=== PATIENT | male | born 1950 | race Caucasian/White ===

== ENCOUNTER 2017-01-29 03:36 | Inpatient (IN) | payer OTHER ==
[~2017-01-29] VITALS: Ht 172.7 cm; Wt 96.6 kg
[~2017-01-29 03:36] MED LIST: ADVIL,NUPRIN,M200 MG PO; AMLODIPINE BESY10 MG PO; ASCORBIC ACID100 MG PO; ASPIRIN325 MG PO; AUGMENTIN875 MG PO; COLACE100 MG PO; DAILY VITE1 EAC1 PO; DULCOLAX10 MG PR; FLEET ENEMA-AD118 ML PR; FLOMAX0.4 MG PO; HYDROCHLOROTH12.5 M3 PO; LABETALOL HCL200 MG PO; LISINOPRIL2.5 MG PO; MIRALAX255 GM PO; MULTIVITAMIN1 EAC2 PO; NORVASC10 MG PO; PHILLIPS'400 MG/5 M PO; SENNA8.6 MG PO; TYLENOL REGULA325 MG PO; ZESTORETIC 10-1 EAC1 PO
[2017-01-29 05:05] LABS: CHLORIDE 100 mEq/L (99-109); SODIUM 136 mEq/L (136-147)
[2017-01-29 05:08] LABS: GLUCOSE 120 mg/dL (70-99)
[2017-01-29 05:09] LABS: ANION GAP 12 MEQ/L (2-14)
[2017-01-29 05:10] LABS: TOTAL BILIRUBIN 0.6 mg/dL (0.0-1.0)
[2017-01-29 05:11] LABS: ALKALINE PHOSPHATASE 84 IU/L (3-129); GFR ESTIMATE (CALCULATED) 50 mL/min/
[2017-01-29 05:13] LABS: UREA NITROGEN (BUN) 28 mg/dL (9-23)
[2017-01-29 05:15] LABS: LIPASE 21 U/L (1.0-51.0)
[2017-01-29 05:22] LABS: HEMATOCRIT 32.1 % (38.0-50.0); MCH 28.9 PG (29.0-34.0); MCHC 32.1 G/DL (30.0-36.0); MCV 89.9 FL (86-99); MEAN PLAT.VOLUME 10.1 uM^3 (9.0-12.4); PLATELET COUNT 308 K/uL (156-360); RBC DIS.WIDTH-CV 13.4 % (11.8-14.6); RBC DIS.WIDTH-SD 44.3 % (39-53); RED BLOOD COUNT 3.57 M/uL (4.00-5.50); WHITE BLOOD COUNT 13.1 K/uL (4.1-10.2)
[2017-01-29 05:33] LABS: PTT 30.6 (25-32)
[2017-01-29] MEDS ORDERED: ZESTRIL10 MG PO (12:16)
[2017-01-29] MEDS ORDERED: HYDROCHLOROTHIA25 MG PO (12:16)
[2017-01-29] MEDS ORDERED: LO-DOSE ASPIRIN81 M2 PO (12:17)
[2017-01-29 12:51] VITALS: BP 148/84
[2017-01-29 17:38] VITALS: BP 144/78
[2017-01-29 19:18] VITALS: BP 122/67
[2017-01-29 23:36] VITALS: BP 126/68
[2017-01-30] VITALS (7 sets, daily range): BP systolic 114–161; BP diastolic 62–83
[2017-01-30 07:04] LABS: BASOPHIL COUNT 0.1 K/uL (0-0.1); EOSINOPHIL (%) 3.8 % (0-5); EOSINOPHIL COUNT 0.4 K/uL (0-0.3); HEMATOCRIT 29.3 % (38.0-50.0); IMMATURE GRANULOCYTE (%) 0.6 % (0.0-0.7); IMMATURE GRANULOCYTE COUNT 0.1 K/uL; LYMPHOCYTE COUNT 2.2 K/uL (1.0-2.8); MCH 29.3 PG (29.0-34.0); MCHC 32.4 G/DL (30.0-36.0); MCV 90.4 FL (86-99); MEAN PLAT.VOLUME 10.1 uM^3 (9.0-12.4); MONOCYTE (%) 10.9 % (3-12); MONOCYTE COUNT 1.2 K/uL (0-0.8); NEUTROPHIL (%) 63.9 % (45-76); PLATELET COUNT 331 K/uL (156-360); RBC DIS.WIDTH-CV 13.3 % (11.8-14.6); RBC DIS.WIDTH-SD 44.7 % (39-53); RED BLOOD COUNT 3.24 M/uL (4.00-5.50)
[2017-01-30 07:38] LABS: ANION GAP 11 MEQ/L (2-14); CHLORIDE 102 MEQ/L (99-109); GFR ESTIMATE (CALCULATED) 54 mL/min/; GLUCOSE 111 mg/dL (70-99); POTASSIUM 4.4 MEQ/L (3.7-5.4); SAMPLE HEMOLYSIS CHECK 0; SAMPLE ICTERIC CHECK 0; SAMPLE LIPEMIA CHECK 0; SODIUM 140 MEQ/L (136-147); UREA NITROGEN (BUN) 27 mg/dL (9-23)
[2017-01-31 07:33] VITALS: BP 129/71
[2017-01-31 16:05] VITALS: BP 139/70
[2017-01-31] MEDS ORDERED: DOCUSATE SODIU100 MG PO (18:56)
[2017-01-31] MEDS ORDERED: K-DUR20 MEQ PO (18:56)
[2017-01-31] MEDS ORDERED: POLYETHYLENE GL17 GM PO (18:56)
[2017-01-31] MEDS ORDERED: FUROSEMIDE40 MG PO (18:56)
[2017-01-31] MEDS ORDERED: TAMSULOSIN HCL0.4 MG PO (18:57)
[2017-01-31 19:23] LABS: ADD MIUA? NO; BILIRUBIN NEGATIVE; BLOOD NEGATIVE; COLOR YELLOW ((YELLOW)); GLUCOSE (STRIP) NEGATIVE; KETONES NEGATIVE; LEUKOCYTES NEGATIVE; NITRITE NEGATIVE; PROTEIN (STRIP) NEGATIVE; SPECIFIC GRAVITY 1.013 (1.000-1.030); UROBILINOGEN 0.2 MG/DL (0.2-1.0)
[2017-01-31 23:24] VITALS: BP 126/71
== END 2017-02-01 09:47 | disposition home or self-care (01) | DRG 299 ==
LOC: EME 03:36 → EDOF 08:56 → 2EASTP 08:56
PROVIDERS: Emergency Medicine; Family Medicine Sports Medicine; Physician Assistant Surgical
DX: I82.423 Acute embolism and thrombosis of iliac vein, bilateral (principal); I26.99 Other pulmonary embolism without acute cor pulmonale; I82.221 Chronic embolism and thrombosis of inferior vena cava; D64.9 Anemia, unspecified; D72.829 Elevated white blood cell count, unspecified; E78.5 Hyperlipidemia, unspecified; I69.154 Hemiplegia and hemiparesis following nontraumatic intracerebral hemorrhage affecting left non-dominant side; I12.9 Hypertensive chronic kidney disease with stage 1 through stage 4 chronic kidney disease, or unspecified chronic kidney disease; J45.909 Unspecified asthma, uncomplicated; K59.00 Constipation, unspecified; N50.89 Other specified disorders of the male genital organs; Z87.891 Personal history of nicotine dependence; Z79.82 Long term (current) use of aspirin; Z79.899 Other long term (current) drug therapy; Z82.49 Family history of ischemic heart disease and other diseases of the circulatory system; Z86.711 Personal history of pulmonary embolism; Z95.828 Presence of other vascular implants and grafts; I69.112 Visuospatial deficit and spatial neglect following nontraumatic intracerebral hemorrhage; Z86.718 Personal history of other venous thrombosis and embolism; R51 Headache; E11.22 Type 2 diabetes mellitus with diabetic chronic kidney disease; N18.1 Chronic kidney disease, stage 1
CPT/HCPCS: 80048; 80053; 81003; 83605; 83690; 83880; 85025; 85027; 85610; 85730; 87086; 93970; 93979; 99281; 99285; J1650; J1940